=== PATIENT | female | born 1975 | race Caucasian/White ===

== ENCOUNTER 2023-07-11 10:16 | Emergency (ER) | payer OTHER, SELFPAY ==
[2023-07-11 10:22] VITALS: BP 185/99
--- NOTE | 2023-07-11 11:09 | ED.GENMED ---
History of Present Illness
General
Chief Complaint: Flank Pain
Source: patient
Exam Limitations: none
Time Seen by Provider: 07/11/23 10:59
Travel History
Have you had any contact with someone who has COVID-19?: No
Do you have any symptoms of coronavirus? Fever > 100 degrees, chills, cough, shortness of breath, sore throat, loss of taste or smell, muscle aches, or headache?: No
History of Present Illness
History of Present Illness:
48-year-old female otherwise healthy presents complaining of right lower rib pain over the past 2 days. It hurts worse with cough and bear down. She denies any breath or pain upon deep breathing. She gave her daughter an 'airplane' ride several
days ago. No other known injury. No recent travel or surgery. She denies leg swelling or calf pain. No hemoptysis. No other complaints at this time. She denies urinary symptoms or fever. Pain not worse with eating.
Past History
Past History
ED Past Medical History: Psychiatric (Obsessive-compulsive), Other (Low vitamin D) and Other (Endometriosis)
ED Past Surgical History: None
Social History
Tobacco: Non-smoker
Employment: Employed
Phy Exam
Physical Exam
Physical Exam:
General: Well-appearing female no acute respiratory distress
HEENT: Normocephalic atraumatic
Heart: Regular rate and rhythm no murmurs
Lungs: Breath sounds heard throughout
Musculoskeletal exam: Slightly tender over the right inferior lateral ribs without step-off or deformity. No significant costovertebral angle tenderness
Abdomen: Soft nontender to the right upper quadrant negative Carmona sign nontender to the right lower quadrant
Extremities: No cyanosis
Course
Orders/Labs/Results
Orders:
Orders
07/11/23 11:09
CR Ribs-right 3 Vw W/pa Chest* Urgent
Comment:
Reason For Exam: right lower rib pain, laterally
07/11/23 11:13
Complete Blood Count/With Diff Urgent
Comprehensive Metabolic Panel Urgent
D-Dimer Urgent
07/11/23 11:23
Urinalysis Reflex To Culture Urgent
Date Specimen was Collected: 07/11/23
Time Specimen was Collected: 11:08
Urine Microscopic Reflex Cult Urgent
07/11/23 12:33
CT Chest Pe Study Urgent
Comment:
Reason For Exam: right inferior chest wall pain
Abnormal Lab Results
07/11/23 07/11/23
11:13 11:23
RBC 5.85 H 10^6/uL
(4.20-5.40)
MCV 64.1 L fL
(81.0-99.0)
MCH 20.5 L pg
(27.0-31.0)
MCHC 32.0 L g/dL
(33.0-37.0)
RDW 14.6 H %
(11.5-14.5)
D-Dimer 0.71 H ug/mlFEU
(0.00-0.50)
Leukocyte Esterase Rfl Trace A
(Negative)
Urine Bacteria (Reflex) Few A
(Negative)
07/11/23 11:13
07/11/23 11:13
Vital Signs
Initial and Last Documented VS:
Initial Vital Signs
Temp Pulse Resp BP Pulse Ox
98 F 87 18 185/99 98
07/11/23 10:22 07/11/23 10:22 07/11/23 10:22 07/11/23 10:22 07/11/23 10:22
Last Documented Vital Signs
Temp Pulse Resp BP Pulse Ox
98 F 87 18 185/99 98
07/11/23 10:22 07/11/23 10:22 07/11/23 10:22 07/11/23 10:22 07/11/23 10:22
MDM/Problems Addressed
Differential Diagnosis Includes:
Right flank/chest wall pain. Can consider muscular strain versus PE. Will check urine for evidence of kidney infection exam not consistent with biliary colic
D-dimer pending. Will order rib series.
*Critical Care Note
Total Time (30-74mins, 75-104mins- exclusive of procedures): Not Applicable
Update Note
Update Note:
D-dimer slightly elevated. Rib series was negative. Did follow rib series with CT scan secondary to chest wall pain and elevated D-dimer. This was also negative. Reassured patient. Suspect underlying muscular strain. Recommended
kvbm-djj-elaoked NSAIDs or Tylenol. Stable for discharge urinalysis without sign of infection. Patient has no urinary symptoms otherwise
ED Attending Note
-
Portions of this chart may have been created with voice recognition software.� Occasional wrong word or��sound alike� substitutions may have occurred due to the inherent limitations of voice recognition software.
Discharge Plan
Departure
Patient Disposition: Home (Routine Discharge)
Date of Disposition: 07/11/23
Time of Disposition: 14:07
Patient with high blood pressure during this ER visit?: No
Discharge Problem:
Strain of chest wall
Instructions: Muscle and Bone Pain (DC)
Prescriptions:
No Action
levothyroxine 125 MCG tablet
125 mcg PO DAILY
albuterol sulfate [Proventil HFA] 90 MCG/PUFF HFA aerosol inhaler
2 puff inhalation Q6HPRN PRN (Reason: wheezing)
tamsulosin 0.4 MG capsule
0.4 mg PO DAILY Qty: 7 0RF
Referrals:
Anna Rios DO [Family Provider] -
Activity Restrictions/Additional Instructions:
Avoid heavy lifting or twisting. Use ibuprofen or Tylenol for pain. Return for worsening symptoms otherwise follow-up with family doctor.
Interventions
Interventions:
*Risk Screen - Suicide Last Done: 07/11/23 10:22
*General Assessment Last Done: 07/11/23 10:22
*Neglect/Abuse Screening Last Done: 07/11/23 10:22
ED- Fall Risk Assessment Last Done: 07/11/23 12:16
*ED COVID-19 Vaccine History Last Done: 07/11/23 12:16
PJ-Koezgm-Kvdcnaihnu Assessment Last Done: 07/11/23 11:03
ED-Female Genitourinary Assessment Last Done: 07/11/23 11:03
[2023-07-11 11:26] LABS: % Basophils 1.2 % (0-2); % Eosinophils 1.6 % (0-6); % Immature Granulocytes 0.2 % (0-0.5); % Lymphocytes 21.9 % (20.5-51.1); % Monocytes 6.3 % (1.7-9.3); % Neutrophils 68.8 % (42.2-75.2); Absolute Basophils 0.1 10^3/uL (0-0.2); Absolute Eosinophils 0.1 10^3/uL (0-0.7); Absolute Lymphocytes 1.8 10^3/uL (1.2-3.4); Absolute Monocytes 0.5 10^3/uL (0.1-0.6); Absolute Neutrophils 5.6 10^3/uL (1.4-6.5); Hematocrit 37.5 % (37.0-47.0); Mean Corpuscular Hgb 20.5 pg (27.0-31.0); Mean Corpuscular Volume 64.1 fL (81.0-99.0); Mean Platelet Volume 10.3 fL (7.4-10.4); Nucleated Red Blood Cells % 0 %; Platelet Count 270 10^3/uL (130-400); Red Blood Cell Count 5.85 10^6/uL (4.20-5.40); Red Cell Dist. Width 14.6 % (11.5-14.5); White Blood Cell Count 8.1 10^3/uL (4.8-10.8)
[2023-07-11 11:35] LABS: D-Dimer 0.71 ug/mlFEU (0.00-0.50)
[2023-07-11 11:39] LABS: ALT (SGPT) 14 U/L (0-35); AST (SGOT) 20 U/L (14-36); Albumin 4.5 g/dl (3.5-5.0); Alkaline Phosphatase 76 U/L (38-126); Blood Urea Nitrogen 10 mg/dl (7-17); Calcium 9.4 mg/dl (8.4-10.2); Carbon Dioxide 23 mmol/L (22-30); Chloride 107 mmol/L (98-107); Glucose 97 mg/dl (70-99); Potassium 3.8 mmol/L (3.5-5.1); Sodium 137 mmol/L (135-145); Total Bilirubin 0.7 mg/dl (0.2-1.3); Total Protein 7.6 g/dl (6.3-8.2); eGFR > 60.00
[2023-07-11 11:45] LABS: Urine Albumin Negative (Neg - Trace); Urine Bilirubin Negative (Negative); Urine Character Slightly Cloudy (Clear); Urine Color Yellow; Urine Glucose Negative (Negative); Urine Ketone Negative (Negative); Urine Leukocyte Trace (Negative); Urine Nitrite Negative (Negative); Urine Occult Blood Negative (Negative); Urine Urobilinogen Negative (Neg - 1+)
[2023-07-11 12:29] LABS: Urine Bacteria Few (Negative); Urine Red Blood Cell 0-2 /HPF (0-2)
== END 2023-07-11 14:20 | disposition home or self-care (01) ==
LOC: EMR 10:16
PROVIDERS: Physician Assistant; EMERGENCY PHYSICIAN Emergency Medicine; FAMILY PHYSICIAN Family Medicine
DX: S29.011A Strain of muscle and tendon of front wall of thorax, initial encounter (principal); X58.XXXA Exposure to other specified factors, initial encounter
CPT/HCPCS: 99285; 71101; 71275; 80053; 81003; 81015; 85025; 85379; Q9967

== ENCOUNTER → 2023-11-25 12:50 | Outpatient (REF) | payer OTHER, SELFPAY | LOC: MRI 3T 12:50 | PROVIDERS: ATTENDING PHYSICIAN Orthopaedic Surgery; FAMILY PHYSICIAN Family Medicine | DX: S83.231A Complex tear of medial meniscus, current injury, right knee, initial encounter (principal) | CPT/HCPCS: 73721 ==

== ENCOUNTER 2024-01-02 10:18 | Outpatient (RCR) | payer OTHER, SELFPAY | END 2024-01-02 23:59 | disposition home or self-care (01) | LOC: RPT 10:18 | PROVIDERS: ATTENDING PHYSICIAN Orthopaedic Surgery; FAMILY PHYSICIAN Family Medicine | DX: S83.501D Sprain of unspecified cruciate ligament of right knee, subsequent encounter (principal); R26.89 Other abnormalities of gait and mobility | CPT/HCPCS: 97110; 97162 ==

== ENCOUNTER → 2024-12-13 10:32 | Outpatient (REF) | payer OTHER, SELFPAY | LOC: HWWDC 10:32 | PROVIDERS: ATTENDING PHYSICIAN Obstetrics & Gynecology; FAMILY PHYSICIAN Family Medicine | DX: Z12.31 Encounter for screening mammogram for malignant neoplasm of breast (principal) | CPT/HCPCS: 77063; 77067 ==

== ENCOUNTER → 2024-12-24 10:41 | Outpatient (REF) | payer OTHER, SELFPAY | LOC: WDC 10:41 | PROVIDERS: ATTENDING PHYSICIAN Obstetrics & Gynecology; FAMILY PHYSICIAN Family Medicine | DX: R92.8 Other abnormal and inconclusive findings on diagnostic imaging of breast (principal) | CPT/HCPCS: 76642 ==